=== PATIENT | female | born 1980 | race Hispanic/Latino ===

== ENCOUNTER → 2019-10-07 | Outpatient (CLI) | payer OTHER ==
[~2019-10-07] MED LIST: GADOBENATE DIMEGLUMINE 1 ML IV ONE; SODIUM CHLORIDE 0.9% 50ML 50 ML ONE
--- NOTE | 2019-10-07 14:32 | Diagnostic Imaging Report ---
MRI BRAIN WOW HISTORY: Left-sided hearing loss COMPARISON: None. Technique: Multiplanar, multisequence MRI examination of the internal auditory canals and brain was performed without and with intravenous, gadolinium-based contrast. Multiplanar 3-D FIESTA images through the internal auditory canals were included. 15 mL of MultiHance were administered. Susceptibility artifacts from the oral cavity obscure some details. DISCUSSION: No pontine signal abnormalities are seen. The cerebellopontine angles are clear. The internal auditory canals are normal in caliber. No abnormal internal auditory canal enhancement is seen. The cranial nerve 7/8 complexes are grossly unremarkable. The membranous labyrinths are grossly unremarkable. Additional findings: None. IMPRESSION: Susceptibility artifacts from the oral cavity obscure some details. In spite of limitations: Unremarkable cerebellopontine angles, internal auditory canals, and membranous labyrinths. Signed by: Dr. Lucas Patel M.D. on 10/07/2019 2:28 PM
== END ==
LOC: MRI 09:28
PROVIDERS: ATTEND Otolaryngology
DX: H90.5 Unspecified sensorineural hearing loss (principal)
CPT/HCPCS: 70553

== ENCOUNTER → 2020-12-08 | Outpatient (CLI) | payer OTHER | LOC: MAMMO 08:12 | PROVIDERS: ATTEND Obstetrics & Gynecology | DX: Z12.31 Encounter for screening mammogram for malignant neoplasm of breast (principal) | CPT/HCPCS: 77067 ==